=== PATIENT | male | born 1940 | race Caucasian/White ===

== ENCOUNTER 2017-12-15 10:06 | Day surgery (SDC) | payer MEDICARE, OTHER ==
[~2017-12-15] VITALS: Ht 180.3 cm; Wt 71.4 kg
--- NOTE | ~2017-12-15 | OP ---
PATIENT NAME: SHARON ZUÑIGA MEDICAL RECORD: [id number] [facility] DATE: SURGEON: FLAKO VALERA DO DATE OF OPERATION: 12/15/2017 PROCEDURE: Colonoscopy with biopsies. 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 SCOPE: Turning Art video pediatric colonoscope. MEDICATIONS: Propofol 330 mg IV per anesthesia. WITHDRAWAL TIME: Greater than 10 minutes. FINDINGS: Informed consent was given. The patient was made comfortable with the above medication. After reaching an adequate level of sedation by slow IV push, the patient was placed on his left side. A digital rectal examination was performed and was normal. The endoscope was then advanced under direct visualization through the rectum right up to the cecum. The cecum was not intubated due to looping of the endoscope, but the ileocecal valve was visualized as was part of the cecum itself. The endoscope was slowly withdrawn and mucosa was carefully examined. The prep quality was fair. On this examination, there were multiple diverticula of mixed type in the descending and sigmoid colon without diverticulitis. Retroflexion was performed in the rectum with visualization of grade II internal hemorrhoids without bleeding. There were no polyps visualized on today's examination. There was no evidence of inflammatory bowel disease from the mucosa seen. Random biopsies were taken to submit for histopathology. Stool was collected for further studies to rule out infectious causes of diarrhea as well as exocrine pancreatic insufficiency. The endoscope was withdrawn from the patient. The patient tolerated the procedure well and there were no immediate complications. IMPRESSION: 1. Mild diverticulosis of descending and sigmoid colon. 2. Grade II internal hemorrhoids without bleeding. PLAN AND RECOMMENDATIONS: 1. Discharge home when recovery parameters are met. 2. Followup biopsy specimen results. 3. High-fiber diet. 4. Continue current medications including Lomotil as needed for diarrhea. 5. We will provide a prescription for cholestyramine at this time, 2 grams b.i.d. 6. Further recommendations will be dependent on results of biopsy specimens. TRANSINT:[id number] Voice Confirmation ID: [id number] DOCUMENT ID: [id number] OPERATIVE REPORT [id number] SHARON ZUÑIGA FLAKO VALERA DO at 0721 CC: [id number] DICTATION DATE: 12/15/17 1410 [employer] MACHINE OPERATOR PAPER BAGS: 12/15/17 1437 [facility] 12/15/17 [place] [id number] [facility] [place] [address]
[2017-12-15 10:26] LABS: BASOPHILS 0.4 % (0-2); EOSINOPHILS 2.9 % (0-7); HEMATOCRIT 30.2 % (42.0-54.0); HEMOGLOBIN 10.2 g/dL (13.5-17.5); IMMATURE GRANULOCYTES 0.3 % (0-5); LYMPHOCYTES 17.3 % (15-50); MCH 34.1 pg (26.0-34.0); MCHC 33.8 g/dL (31.0-37.0); MEAN PLATELET VOLUME 9.9 fL (7.4-10.4); MONOCYTES 0.8 % (2-11); NEUTROPHILS 78.3 % (40-80); PLATELET COUNT 143 10x3/uL (130-400); RBC 2.99 10x6/uL (4.20-6.10); RDW 18.2 % (11.5-14.5); WBC 7.8 10x3/uL (4.8-10.8)
[2017-12-15 10:37] LABS: ANION GAP 16.4 mmol/L (8-16); CALCIUM 8.4 mg/dL (8.5-10.1); CARBON DIOXIDE 20.9 mmol/L (21.0-32.0); CREATININE - SERUM 1.2 mg/dL (0.6-1.3); POTASSIUM - SERUM 3.3 mmol/L (3.5-5.1)
[2017-12-15] MEDS ORDERED: VENTOLIN HFA18 GM INH (11:36)
[2017-12-15] MEDS ORDERED: CARDURA1 MG PO (11:37)
[2017-12-15] MEDS ORDERED: PROTONIX40 MG PO (11:39)
[2017-12-15] MEDS ORDERED: COREG 3.1253.125 MG PO (11:39)
[2017-12-15] MEDS ORDERED: LIPITOR20 MG PO (11:40)
[2017-12-15] MEDS ORDERED: TEMAZEPAM30 MG PO (11:40)
[2017-12-15] MEDS ORDERED: OMEPRAZOLE40 MG PO (11:40)
[2017-12-15 11:51] VITALS: BP 106/54; Ht 180.3 cm; Wt 71.4 kg
[2017-12-25 22:15] LABS: OVA + PARASITE EXAM Final report (())
== END 2017-12-15 15:30 | disposition home or self-care (01) ==
LOC: D.OPS 10:06
PROVIDERS: Anesthesiology; Internal Medicine Gastroenterology
DX: K57.30 Diverticulosis of large intestine without perforation or abscess without bleeding (principal); K64.1 Second degree hemorrhoids; R19.7 Diarrhea, unspecified; Z01.812 Encounter for preprocedural laboratory examination; Z85.07 Personal history of malignant neoplasm of pancreas; Z85.118 Personal history of other malignant neoplasm of bronchus and lung